=== PATIENT | female | born 1990 | race Caucasian/White ===

== ENCOUNTER 2020-05-17 10:23 | Outpatient (REF) | payer OTHER, SELFPAY ==
[2020-05-17 13:59] LABS: MANUAL DIFF FLAG NO
[2020-05-17 14:03] LABS: Basophils Percent Auto 0.5 % (0-2); Eosinophils Absolute Auto 0.1 X10*3/uL (0.0-0.4); Eosinophils Percent Auto 1.7 % (0-4); Hematocrit 40.2 % (37-47); Hemoglobin 13.3 g/dl (12.0-16.0); Imm Gran Abs Auto 0.01 X10*3/uL (0.00-0.03); Imm Gran Pct Auto 0.2 % (0.0-0.4); Lymphocytes Absolute Auto 2.1 X10*3/uL (1.2-4.9); Lymphocytes Percent Auto 32.8 % (20-40); Mean Corpuscular HGB Conc 33.1 g/dl (31.0-35.0); Mean Corpuscular Hemoglobin 29.9 pg (27.0-33.0); Mean Corpuscular Volume 90.3 fL (80-98); Mean Platelet Volume 12.8 fL (9.4-12.3); Monocytes Absolute Auto 0.5 X10*3/uL (0.1-1.2); Monocytes Percent Auto 7.3 % (2-11); Neutrophils Absolute Auto 3.7 X10*3/uL (2.0-8.3); Neutrophils Percent Auto 57.5 % (45-73); Platelet Count 229 X10*3/uL (160-400); Red Blood Count 4.45 X10*6/uL (4.20-5.50); White Blood Count 6.5 X10*3/uL (4.8-10.8)
[2020-05-17 14:39] LABS: Anion Gap 11 (12-20); Blood Urea Nitrogen 12 mg/dL (9-16); Calcium 9.3 mg/dL (8.4-10.2); Carbon Dioxide 26 mmol/L (22-29); Chloride 104 mmol/L (96-108); Cholesterol 167 mg/dL; Estimated Glomerular Filt Rate > 60; Glucose Fasting 80 mg/dL (60-99); HDL Cholesterol 79 mg/dL; LDL Cholesterol Calculated 82 mg/dl; Potassium 5.1 mmol/l (3.3-5.1); Sodium 136 mmol/L (135-145); Triglycerides 32 mg/dL
[2020-05-17 14:57] LABS: TSH reflex Free T4 1.25 mIU/mL (0.32-4.0)
== END 2020-05-17 10:24 | disposition home or self-care (01) ==
LOC: HO.HMGCLDS 10:23
PROVIDERS: PCP Internal Medicine; Visit Provider Internal Medicine
DX: E66.9 Obesity, unspecified (principal); M79.18 Myalgia, other site; Z00.01 Encounter for general adult medical examination with abnormal findings
CPT/HCPCS: 36415; 80048; 80061; 84443; 85025

== ENCOUNTER 2020-07-08 15:21 | Outpatient (REF) | payer OTHER, SELFPAY ==
[2020-07-09 08:54] LABS: BV Int Neg Control Negative (Negative); BV Int Pos Control Positive (Positive)
[2020-07-09 14:17] LABS: C. trachomatis RNA TMA NOT DETECTED (NOT DETECTED); N. gonorrhoeae RNA TMA NOT DETECTED (NOT DETECTED)
== END 2020-07-08 15:22 | disposition home or self-care (01) ==
LOC: HO.LAB 15:21
PROVIDERS: PCP Internal Medicine; Visit Provider Obstetrics & Gynecology
DX: R10.2 Pelvic and perineal pain (principal)
CPT/HCPCS: 36415; 81003; 81025; 87480; 87491; 87510; 87591; 87660; 88142; 99212

== ENCOUNTER 2020-10-30 09:38 | Outpatient (REF) | payer OTHER, SELFPAY ==
[2020-10-30 15:24] LABS: CT PCR NOT DETECTED (Not Detect.); NG PCR NOT DETECTED (Not Detect.)
[2020-10-31 09:36] LABS: BV Int Neg Control Negative (Negative); BV Int Pos Control Positive (Positive)
== END 2020-10-30 09:39 | disposition home or self-care (01) ==
LOC: HO.LAB 09:38
PROVIDERS: Visit Provider Advanced Practice Midwife
DX: R10.2 Pelvic and perineal pain (principal); N89.8 Other specified noninflammatory disorders of vagina; Z20.2 Contact with and (suspected) exposure to infections with a predominantly sexual mode of transmission; Z32.02 Encounter for pregnancy test, result negative
CPT/HCPCS: 81025; 87480; 87491; 87510; 87591; 87660; 99212

== ENCOUNTER 2024-05-09 13:06 | Outpatient (AMB) | payer OTHER, SELFPAY ==
--- NOTE | 2024-05-09 13:08 | MHC.PC.OV ---
Vital Signs 05/09/24 13:09 Height 5 ft 10 in Weight 186 lb 6 oz BMI 26.7 BP 122/82 Blood Pressure Location Lt brachial Position Sitting Pulse 79 Pulse Source Pulse Oximeter Pulse Oximetry (%) 98 Oxygen Delivery Method Room Air Intake Visit Reasons: skin burning Allergies No Known Allergies Allergy (Verified 05/09/24 13:09) Medication List - Last Reviewed 05/09/24 by Maryana Harrison MA No Known Home Meds Tobacco use date assessed: 05/09/24 Dental Screening Dental Screen Date: 05/09/24 Did you have a dental visit in the last 12 months?: Yes Did you have a dental problem in the last 6 months where you did not have access to dental care?: No Was dental information given to patient?: Patient has dentist HPI skin burning HPI Details Patient is a 34-year-old female who was last seen in 2021 Came in for a problem visit Chief Complaint Persistent burning sensation during urination. Assessment and Plan history of recurrent urinary burning presents for evaluation. She has experienced persistent dysuria since the beginning of the previous year, initially treated as a suspected UTI and possible sexually transmitted infection, without confirmed diagnosis. She has been hospitalized earlier this year and diagnosed with PID and concurrent UTI, which improved with antibiotic and fluid therapy. However, the urinary burning has recurred. Past imaging revealed an ovarian cyst and uterine fibroids. The patient also reports chronic BV symptoms and is concerned about her fertility. She has scheduled a referral to [facility] for further evaluation and management of these concerns. 1. Dysuria Persistent dysuria continues despite prior treatments; conduct urine test to identify ongoing UTI or other issues. Consider differential diagnoses including recurrent UTI and treatment with appropriate antibiotics once results are back. 2. Bacterial Vaginosis Bv Reported chronic symptoms; perform vaginal swab to confirm. Initiate treatment based on result and consider regular follow-ups to manage chronic symptoms. 3. Uterine Fibroids Recommended follow-up with an [facility] for further evaluation and management. 4. Ovarian Cyst Observed as a small cyst with no immediate intervention necessary. Monitor via sonography if needed based on symptom development. 5. Pelvic Inflammatory Disease Pid Previous episode treated with intravenous antibiotics during hospitalization had effective, albeit temporary, resolution. Include as part of the differential diagnosis if current symptoms escalate. 6. Urinary Tract Infection Uti Monitor symptoms and perform urine analysis to confirm presence of infection. Prior treatment with antibiotics provided temporary relief; further evaluation needed to ensure correct diagnosis and management. Ensure follow-up if symptoms persist. Problem List - Dysuria - Urinary Tract Infection (UTI) - Pelvic Inflammatory Disease (PID) - Bacterial Vaginosis (BV) - Ovarian Cyst - Uterine Fibroids Patient Instructions - Proceed with urine test and vaginal swab as planned at the lab. - Follow up with [facility] referral to discuss management of cyst, fibroids, and fertility concerns. - Monitor symptoms and return immediately if urinary pain worsens or new symptoms develop. - Set up patient portal for upload and sharing of prior medical records and imaging reports. - Discuss contraception options if desired during [facility] appointment. [facility] Medical History Piriformis muscle pain Encounter for general adult medical examination with abnormal findings Surgical History S/P dilation and curettage Family History Mother No problems noted. Maternal Grandmother Lung cancer Smoker Diabetes mellitus Maternal Grandfather Alzheimer's disease Social History Housing: Apartment Alcohol intake: current Alcohol intake frequency: holidays/special occasions only Patient Tobacco Use Status: Never used Tobacco e-Cigarette/Vaping Use: Never Used service: No Current occupational status: employed Sexual orientation: Straight/Heterosexual Gender identity: Female Cognitive needs: No Hearing needs: No Vision needs: No Female Reproductive History Menstrual Age of Menarche: 14 Questionnaire PHQ-9 Over the last 2 weeks, how often have you been bothered by any of the following problems? 1. Little interest or pleasure in doing things: not at all 2. Feeling down, depressed, or hopeless: not at all 3. Trouble falling or staying asleep, or sleeping too much: not at all 4. Feeling tired or having little energy: not at all 5. Poor appetite or overeating: not at all 6. Feeling bad about yourself - or that you are a failure or have let yourself or your family down: not at all 7. Trouble concentrating on things, such as reading the newspaper or watching television: not at all 8. Moving or speaking so slowly that other people could have noticed. Or the opposite - being so fidgety or restless that you have been moving around a lot more than usual: not at all 9. Thoughts that you would be better off or of hurting yourself in some way: not at all Total score: 0 Depression Screening Interpretation: Negative Depression Screening Done: Yes 27921 - PHQ-9 Billing: Yes Source: Developed by Drs. Brody Mitchell, Destiny Cartwright, Joe Velazquez and colleagues, with an educational johanny from [employer]. Thrive Questionnaire Date Thrive assessed: 05/09/24 I am a: Patient What is your living situation today?: I have a steady place to live Within the past 12 months, did the food you bought not last and you didn't have the money to get more?: Never true Within the past 12 months, did you worry whether your food would run out before you got money to buy more?: Never true Do you have trouble paying for medicines?: No Do you have trouble getting transportation to medical appointments?: No Do you have trouble paying your heating and electricity bill?: No Do you have trouble taking care of your child, family member or friend?: No Do you have trouble with day-to-day activities such as bathing, preparing meals, shopping, managing finances, etc.?: No Are you currently unemployed and looking for a job?: Yes Are you interested in more education?: No Please select the resources that you would like help with: None Currently or been in a relationship where the following occur: No concerns reported THRIVE Score: 0 AUDIT C Alcohol Use Questionnaire (AUDIT-C) 1. How often do you have a drink containing alcohol?: Monthly or less 2. How many drinks containing alcohol do you have on a typical day when you are drinking?: 1 or 2 3. How often do you have six or more drinks on one occasion?: Never Total Score: 1 Score Reviewed/Action Taken: Yes PHILIP-7 AMB Questionnaire PHILIP-7 Date PHILIP - 7 assessed: 05/09/24 Feeling nervous, anxious, or on edge: 0 = Not at all Not being able to stop or control worryin = Not at all Worrying too much about different things: 0 = Not at all Trouble relaxin = Not at all Being so restless that it is hard to sit still: 0 = Not at all Becoming easily annoyed or irritable: 0 = Not at all Feeling afraid as if something awful might happen: 0 = Not at all Total PHILIP-7 score (0-4 normal; 5-9 mild; 10-14 moderate; 15-21 severe): 0 Source: Developed by Drs. Brody Mitchell, Destiny Cartwright, Joe Velazquez and colleagues, with an educational johanny from [employer]. PHILIP-7 Assessment Billing PHILIP-7 Assessment Tool: PHILIP-7 Assessment 58445 Review of Systems Const Denies chills and Denies fever(s) ENT Denies epistaxis and Denies nasal discharge Card Denies chest pain Resp Denies chest congestion, Denies cough and Denies hemoptysis GI Denies diarrhea and Denies nausea Skin/Breast Denies rash Neuro Reports no additional complaints Psych Reports no additional complaints Endo Reports no additional complaints Physical exam (Primary Care) Vital Signs: Last Vital Signs Pulse 79 05/09/24 13:09 BP 122/82 05/09/24 13:09 Pulse Ox 98 05/09/24 13:09 Oxygen Delivery Method Room Air 05/09/24 13:09 BMI result Body Mass Index 26.7 Tobacco/Smoking Status: Tobacco use Status Tobacco use date assessed 05/09/24 05/09/24 13:10 Patient Tobacco Use Status Never used Tobacco 05/09/24 13:10 e-Cigarette/Vaping Use Never Used 05/09/24 13:10 PHQ-9: PHQ-9 Score PHQ-9: Total score 0 05/09/24 13:28 Depression Screening Interpretation: Negative Thrive Assessment: Date of Thrive Assessment Date Thrive assessed 05/09/24 05/09/24 13:10 Currently or been in a relationship where the following occur: No concerns reported Const General: cooperative, comfortable and no acute distress Orientation/consciousness: patient oriented x3 HENMT Head: Yes normocephalic Eyes General: appearance normal, both eyes and all related structures Neck Neck: Yes supple Resp Effort & Inspection: normal respiratory effort, no cough and no stridor Cardio Rhythm: regular rhythm Heart sounds: S1 normal heart sound present and S2 normal heart sound present GI Other: abdominal and suprapubic exam is benign Skin General skin exam: turgor normal Neuro General: patient oriented x3, tone normal and moves all extremities Extrem Right lower extremity: no edema Left lower extremity: no edema Coding Level of Care Code Est Pt Level 4 (07236) Diagnoses Vaginal discharge N89.8 Dysuria R30.0 Cyst of ovary, unspecified laterality N83.209 Laterality: unspecified laterality Uterine leiomyoma, unspecified location D25.9 Uterine leiomyoma location: unspecified location Additional Codes PHILIP-7 Assessment Billing - PHILIP-7 Assessment Tool: PHILIP-7 Assessment 19606 ([id number]) PHQ-9 - 15559 - PHQ-9 Billing: Yes ([id number]) Assessment & Plan Assessment & Plan (1) Vaginal discharge: Code(s): N89.8 - Other specified noninflammatory disorders of vagina Category: Medical (2) Dysuria: Code(s): R30.0 - Dysuria Category: Medical (3) Ovarian cyst: Code(s): N83.209 - Unspecified ovarian cyst, unspecified side Category: Medical Qualifiers: Laterality: unspecified laterality Qualified Code(s): N83.209 - Unspecified ovarian cyst, unspecified side (4) Uterine fibroid: Code(s): D25.9 - Leiomyoma of uterus, unspecified Category: Medical Qualifiers: Uterine leiomyoma location: unspecified location Qualified Code(s): D25.9 - Leiomyoma of uterus, unspecified Plan Patient is a 34-year-old female who was last seen in 2021 Came in for a problem visit Chief Complaint Persistent burning sensation during urination. Assessment and Plan history of recurrent urinary burning presents for evaluation. She has experienced persistent dysuria since the beginning of the previous year, initially treated as a suspected UTI and possible sexually transmitted infection, without confirmed diagnosis. She has been hospitalized earlier this year and diagnosed with PID and concurrent UTI, which improved with antibiotic and fluid therapy. However, the urinary burning has recurred. Past imaging revealed an ovarian cyst and uterine fibroids. The patient also reports chronic BV symptoms and is concerned about her fertility. She has scheduled a referral to [facility] for further evaluation and management of these concerns. 1. Dysuria Persistent dysuria continues despite prior treatments; conduct urine test to identify ongoing UTI or other issues. Consider differential diagnoses including recurrent UTI and treatment with appropriate antibiotics once results are back. 2. Bacterial Vaginosis Bv Reported chronic symptoms; perform vaginal swab to confirm. Initiate treatment based on result and consider regular follow-ups to manage chronic symptoms. 3. Uterine Fibroids Recommended follow-up with an [facility] for further evaluation and management. 4. Ovarian Cyst Observed as a small cyst with no immediate intervention necessary. Monitor via sonography if needed based on symptom development. 5. Pelvic Inflammatory Disease Pid Previous episode treated with intravenous antibiotics during hospitalization had effective, albeit temporary, resolution. Include as part of the differential diagnosis if current symptoms escalate. 6. Urinary Tract Infection Uti Monitor symptoms and perform urine analysis to confirm presence of infection. Prior treatment with antibiotics provided temporary relief; further evaluation needed to ensure correct diagnosis and management. Ensure follow-up if symptoms persist. Problem List - Dysuria - Urinary Tract Infection (UTI) - Pelvic Inflammatory Disease (PID) - Bacterial Vaginosis (BV) - Ovarian Cyst - Uterine Fibroids Patient Instructions - Proceed with urine test and vaginal swab as planned at the lab. - Follow up with [facility] referral to discuss management of cyst, fibroids, and fertility concerns. - Monitor symptoms and return immediately if urinary pain worsens or new symptoms develop. - Set up patient portal for upload and sharing of prior medical records and imaging reports. - Discuss contraception options if desired during [facility] appointment. Orders: Orders Bacterial Vaginosis Panel Today N89.8 - Other specified noninflammatory disorders of vagina UA CC w/rflx Micro + Cult Today N89.8 - Other specified noninflammatory disorders of vagina, R30.0 - Dysuria LDL Cholesterol Direct Today N89.8 - Other specified noninflammatory disorders of vagina, R30.0 - Dysuria Comprehensive Met. Panel Today N89.8 - Other specified noninflammatory disorders of vagina, R30.0 - Dysuria US pelvic and transvaginal Today D25.9 - Leiomyoma of uterus, unspecified, N83.209 - Unspecified ovarian cyst, unspecified side TSH reflex Free T4 Today N89.8 - Other specified noninflammatory disorders of vagina, R30.0 - Dysuria Complete Blood Count Auto Diff Today N89.8 - Other specified noninflammatory disorders of vagina, R30.0 - Dysuria HIV Ab/Ag Today N89.8 - Other specified noninflammatory disorders of vagina, R30.0 - Dysuria Hepatitis C Antibody Today N89.8 - Other specified noninflammatory disorders of vagina, R30.0 - Dysuria Hepatitis B Surface Antibody Today N89.8 - Other specified noninflammatory disorders of vagina, R30.0 - Dysuria Herpes Simplex Virus Ab IgG Today N89.8 - Other specified noninflammatory disorders of vagina, R30.0 - Dysuria Syphilis Screen Today N89.8 - Other specified noninflammatory disorders of vagina, R30.0 - Dysuria Referrals [facility] Referral D25.9 - Leiomyoma of uterus, unspecified, N83.209 - Unspecified ovarian cyst, unspecified side, N89.8 - Other specified noninflammatory disorders of vagina, R30.0 - Dysuria
[2024-05-09 13:09] VITALS: BP 122/82; PULSE 79; O2SAT 98; BMI 26.7
== END 2024-05-09 14:58 | disposition home or self-care (01) ==
PROVIDERS: PCP Internal Medicine; Visit Provider Internal Medicine
DX: N89.8 Other specified noninflammatory disorders of vagina (principal); R30.0 Dysuria; N83.209 Unspecified ovarian cyst, unspecified side; D25.9 Leiomyoma of uterus, unspecified

== ENCOUNTER 2024-05-09 13:06 | Outpatient (REF) | payer OTHER, SELFPAY ==
[2024-05-09 16:09] LABS: Appearance Urine Clear; Color Urine Yellow; Glucose Urine UA Negative (Negative); Leukocyte Esterase Urine Negative (Negative); Nitrite Urine Negative (Negative); Specific Gravity - Urine 1.025 (1.005-1.025); Urine Blood Negative (Negative); Urine Ketones Negative (Negative); Urine Protein Negative (Neg-Trace)
[2024-05-09 16:22] LABS: MANUAL DIFF FLAG NO
[2024-05-09 16:34] LABS: Eosinophils Absolute Auto 0.1 X10*3/uL (0.0-0.4); Eosinophils Percent Auto 1.7 % (0-4); Hematocrit 35.6 % (37.0-47.0); Hemoglobin 11.3 g/dl (12.0-16.0); Imm Gran Abs Auto 0.01 X10*3/uL (0.00-0.03); Imm Gran Pct Auto 0.2 % (0.0-0.4); Lymphocytes Absolute Auto 1.3 X10*3/uL (1.2-4.9); Lymphocytes Percent Auto 31.5 % (20-40); Mean Corpuscular HGB Conc 31.7 g/dl (31.0-35.0); Mean Platelet Volume 12.8 fL (9.4-12.3); Monocytes Absolute Auto 0.3 X10*3/uL (0.1-1.2); Neutrophils Absolute Auto 2.4 x10*3/uL (2.0-8.3); Neutrophils Percent Auto 58.6 % (45-73); Platelet Count 222 X10*3/uL (160-400); Red Blood Count 4.34 X10*6/uL (4.20-5.50); Red Cell Distribution Width 14.1 % (11.0-16.0); White Blood Count 4.2 X10*3/uL (4.8-10.8)
[2024-05-09 17:01] LABS: Alanine Aminotransferase 22 U/L (0-31); Albumin Level 4.2 g/dL (3.5-5.0); Alkaline Phosphatase 59 U/L (39-117); Anion Gap 8 (12-20); Aspartate Amino Transferase 22 U/L (5-31); Bilirubin Total 0.5 mg/dL (0.0-1.0); Blood Urea Nitrogen 11 mg/dL (9-16); Calcium 8.7 mg/dL (8.4-10.2); Carbon Dioxide 26 mmol/L (22-29); Chloride 107 mmol/L (96-108); Estimated Glomerular Filt Rate > 60; Glucose Random 92 mg/dL (60-115); Sodium 137 mmol/L (135-145)
[2024-05-09 17:06] LABS: TSH reflex Free T4 1.31 uIU/mL (0.32-4.0)
[2024-05-10 08:29] LABS: HBS Num1 1.56 mIU/mL (0-7.99); HIV AB/AG Nonreactive (Nonreactive); HIV Num 1 0.07 S/CO (0.00-0.99); Syphilis Screen Nonreactive (Nonreactive); ~HepC Num1 0.19 S/CO (0.00-0.79); ~Hepatitis B Surface Antibody NONREACTIVE (Nonreactive); ~Hepatitis C Antibody Nonreactive (Nonreactive)
[2024-05-11 06:23] LABS: Herpes Simplex Type 1 IgG 3.31 index; Herpes Simplex Type 2 IgG 4.57 index
[2024-05-12 15:33] LABS: LDL Cholesterol Direct 72 mg/dL (<100)
== END 2024-05-09 13:07 | disposition home or self-care (01) ==
LOC: HO.HMGCLDS 13:06
PROVIDERS: PCP Internal Medicine; Visit Provider Internal Medicine
DX: N89.8 Other specified noninflammatory disorders of vagina (principal); R30.0 Dysuria; N83.209 Unspecified ovarian cyst, unspecified side; D25.9 Leiomyoma of uterus, unspecified; N73.9 Female pelvic inflammatory disease, unspecified; N39.0 Urinary tract infection, site not specified
CPT/HCPCS: 36415; 80053; 81003; 83721; 84443; 85025; 86695; 86696; 86706; 86780; 86803; 87389; 96127; 99212

== ENCOUNTER 2024-05-09 14:09 | Outpatient (REF) | payer OTHER, SELFPAY ==
[2024-05-10 08:37] LABS: Bacterial Vaginosis PCR POSITIVE (Negative); Candida Group PCR NOT DETECTED (Not Detect); Candida glab krusei PCR NOT DETECTED (Not Detect); Trichomonas vaginalis PCR NOT DETECTED (Not Detect)
== END 2024-05-09 14:10 | disposition home or self-care (01) ==
LOC: HO.LAB 14:09
PROVIDERS: Visit Provider Internal Medicine
DX: R30.0 Dysuria (principal); N89.8 Other specified noninflammatory disorders of vagina
CPT/HCPCS: 0352U

== ENCOUNTER 2025-04-19 08:17 | Outpatient (REF) | payer OTHER, SELFPAY ==
[2025-04-19 13:23] LABS: Resp Syncy Virus RNA Qual PCR NEGATIVE (Negative); SARS COV2 PCR INHOUSE NEGATIVE (Negative)
== END 2025-04-19 08:18 | disposition home or self-care (01) ==
LOC: HO.LNP 08:17
PROVIDERS: PCP Internal Medicine; Visit Provider Physician Assistant Medical
DX: R05.1 Acute cough (principal); Z13.89 Encounter for screening for other disorder
CPT/HCPCS: 87637; 87880; 99212

== ENCOUNTER 2025-04-19 08:17 | Outpatient (AMB) | payer OTHER, SELFPAY ==
[2025-04-19 08:32] VITALS: BP 122/78; PULSE 83; TEMP 36.8; O2SAT 98
--- NOTE | 2025-04-19 08:32 | MHC.OFFWIV ---
Intake Vital Signs 04/19/25 08:32 Height 5 ft 10 in Weight 209 lb BMI 30.0 BP 122/78 Blood Pressure Location Lt brachial Position Sitting Pulse 83 Pulse Source Pulse Oximeter Temp 98.2 F Temp Source Oral Pulse Oximetry (%) 98 Oxygen Delivery Method Room Air Intake Visit Reasons: EP-cough, sore throat, mid back pain Patient Tobacco Use Status: Never used Tobacco Allergies No Known Allergies Allergy (Verified 04/19/25 08:32) Do you need a note to return to daycare/school/sports/work: No HPI HPI Comments History of Present Illness Details History - The patient is a 35-year-old female presenting with a persistent cough and sore throat. - The cough is persistent, particularly worsening at night, and has been ongoing for a week. - The sore throat accompanies the cough. - She states that the cough is dry. - Mild back pain and general body aches are reported, attributed to her workout regimen. - She is currently . - She denies fever, chills, CP, SOB, abd pain, or n/v/d. - She is a non-smoker and has sick contacts. Physical Exam General: Cooperative, healthy appearing, comfortable and no acute distress Orientation/consciousness: Patient oriented x3 Limitations: No limitations Head: Normal to inspection Ears: Hearing grossly normal bilaterally, external ears normal and TM's normal bilaterally Nose: Normal external nose present, normal nares present, and no nasal discharge present. Face and sinus: Sinuses nontender to palpation. Mouth: Normal oral and palatal mucosa present and moist mucous membranes noted. Throat: Tonsils normal. Uvula is midline. Posterior oropharynx with erythema and no exudates. Eyes: Appearance normal, both eyes and all related structures Neck: Normal visual inspection, full ROM. No lymphadenopathy noted. Respiratory: Clear to auscultation bilaterally. Normal respiratory effort, able to speak in complete sentences. No respiratory distress, not tachypneic, no tripod positioning and no use of accessory muscles. Cardiovascular: Regular rate and rhythm. Normal S1 and S2. No m/r/g noted. Skin: No rashes or lesions noted Patient was informed and verbally consented to the use of an ambient scribe for clinic note documentation during this visit [facility] Medical History Piriformis muscle pain Encounter for general adult medical examination with abnormal findings Surgical History S/P dilation and curettage Family History Mother No problems noted. Maternal Grandmother Lung cancer Smoker Diabetes mellitus Maternal Grandfather Alzheimer's disease Social History Housing: Apartment Alcohol intake: current Alcohol intake frequency: holidays/special occasions only Patient Tobacco Use Status: Never used Tobacco e-Cigarette/Vaping Use: Never Used service: No Current occupational status: employed Sexual orientation: Straight/Heterosexual Gender identity: Female Cognitive needs: No Hearing needs: No Vision needs: No Female Reproductive History Menstrual Age of Menarche: 14 Review of Systems Const All systems reviewed & are unremarkable except as noted in HPI and below Physical Exam Vital Signs: Last Vital Signs Temp 98.2 F 04/19/25 08:32 Pulse 83 04/19/25 08:32 BP 122/78 04/19/25 08:32 Pulse Ox 98 04/19/25 08:32 Oxygen Delivery Method Room Air 04/19/25 08:32 BMI result Body Mass Index 30.0 Results AMB Rapid Strep AMB Rapid Strep Negative Last Edit by Олег Bloom CMA on 04/19/25 09:09 Assessment & Plan Assessment & Plan (1) Cough: Code(s): R05.9 - Cough, unspecified Qualifiers: Cough type: acute Qualified Code(s): R05.1 - Acute cough Plan Most likely URI vs covid vs RSV vs flu vs bronchitis Rapid is negative plan - will order a resp panel and call with the results - tylenol or motrin as needed - Prescribed prednisone and albuterol inhaler to manage symptoms. - Advised against certain cough medications due to potential sedation effects on the infant while . - Initiated treatment with a Z-Rob (azithromycin) for suspected bronchitis. - follow up with PCP Orders: Orders SARS-CoV2/FLU/RSV Today R09.89 - Other specified symptoms and signs involving the circulatory and respiratory systems AMB Rapid Strep Screen Today Z13.9 - Encounter for screening, unspecified Medications: New prednisone 40 mg (2 x 20 mg) PO DAILY 10 tabs 0RF 5 days albuterol sulfate 90 mcg/actuation 2 puffs inhalation Q6H PRN 8.5 grams 0RF shortness of breath or wheezing or cough azithromycin For 250 mg dose pack: take 500 mg today (day 1), then 250 mg for 4 days (days 2-5) PO 6 tabs 0RF Coding Level of Care Code Est Pt Level 3 (01911) Diagnoses Acute cough R05.1 Cough type: acute
--- OUTSIDE RECORDS SUMMARY | 2025-04-19 08:38 | XMS_ITS | Clinical Summary ---
Author Organization [facility] it Address [address] [place] [address] Care Team Providers Care Education Courses Sales Representative Name Role Phone Unavailable Primary Care Provider Unavailabl e Social History Tobacco Use Types Packs/Day Years Used Date Smoking Tobacco: Never Assessed Comments Unknown Sex and Gender Information Value Date Recorded Sex Assigned at Not on file Legal Sex Female 1:33 PM EDT Gender Identity Not on file Sexual Orientation Not on file Plan of Treatment Health Maintenance Due Date Last Done Comments DTaP,Tdap,and Td Vaccines (1 - Tdap) 2011 Hepatitis B Vaccines (1 of 3 - 19+ 3-dose series) 2011 Cervical Cancer Screening: P ap Smear 2013 HPV Vaccines (1 - 3-dose SCD M series) 2019 Depression Screening 06/14/2024 COVID-19 Vaccine (1 - 2023-2 5 season) 2025 Influenza Vaccine (#1) 2025 RSV Immunization Adult Patie nts (1 - 1-dose 75+ series) 2067 HIB Vaccines Aged Out No longer eligi ble based on patient's age to complete this topic Hepatitis A Vaccines Aged Out No long er eligible based on patient's age to complete this topic IPV Vaccines Aged Out No longer eligi ble based on patient's age to complete this topic MMR Vaccines Aged Out No longer eligi ble based on patient's age to complete this topic Meningococcal ACWY Vaccine Aged Out N o longer eligible based on patient's age to complete this topic Meningococcal B Vaccine Aged Out No l onger eligible based on patient's age to complete this topic Pneumococcal Vaccine: Pediat rics (0 to 5 Years) and At-Risk Patients (6 to 49 Years) Aged Out No longer eligible b ased on patient's age to complete this topic RSV Immunization Patients Un ritesh 20 months Aged Out No longer eligible b ased on patient's age to complete this topic Varicella Vaccines Aged Out No longer eligible based on patient's age to complete this topic
== END 2025-04-19 09:14 | disposition home or self-care (01) ==
PROVIDERS: PCP Internal Medicine; Visit Provider Physician Assistant Medical
DX: R05.1 Acute cough (principal); Z13.9 Encounter for screening, unspecified